=== PATIENT | female | born 1980 | race Hispanic/Latino ===

== ENCOUNTER 2024-06-16 20:45 | Emergency (ER) | payer SELFPAY ==
[~2024-06-16] VITALS: Ht 157.5 cm; Wt 58.1 kg
[2024-06-16] MEDS: hydrOXYzine 25 MG TABLET PO ONE (21:26)
[2024-06-16 21:32] LABS: BASOPHILS # (AUTO) 0.04 K/uL (0.00-0.20); BASOPHILS % (AUTO) 0.5 % (0.0-5.0); EOSINOPHILS # (AUTO) 0.17 K/uL (0.00-0.70); HEMATOCRIT 41.9 % (36-48); IMMATURE GRANULOCYTE ABSOLUTE 0.03 K/uL (0-1); LYMPHOCYTES % (AUTO) 12.1 % (21.0-51.0); MEAN CORPUSCULAR HEMOGLOBIN 31.7 pg (27.0-33.0); MEAN CORPUSCULAR HGB CONC 32.9 g/dL (32.0-36.0); MEAN CORPUSCULAR VOLUME 96.1 fL (79-99); MONOCYTES # (AUTO) 0.3 K/uL (0.1-1.0); MONOCYTES % (AUTO) 3.3 % (3.0-13.0); NEUTROPHILS # (AUTO) 6.8 K/uL (1.8-7.7); NEUTROPHILS % (AUTO) 81.7 % (40.0-77.0); PLATELET COUNT (AUTO) 310 K/uL (130-400); RED BLOOD CELL COUNT(AUTO) 4.36 MIL/uL (4.00-5.50); RED CELL DISTRIBUTION WIDTH 12.5 % (11.0-15.5); WHITE BLOOD COUNT (AUTO) 8.4 K/uL (4.8-10.8)
--- NOTE | 2024-06-16 21:35 | HMCIMG ---
CHEST 1VW HISTORY: Chest pain COMPARISON: None FINDINGS: A frontal projection of the chest was obtained. Prominent interstitial markings are seen with possible superimposed infiltrates. The heart is borderline enlarged. All the lines and tubes are again seen in place. No evidence of aortic calcification is seen. IMPRESSION: 1. Prominent interstitial markings are seen with possible superimposed infiltrates.
[2024-06-16 21:40] LABS: CREATININE 0.6 mg/dL (0.5-1.0); POTASSIUM 3.4 mmol/L (3.5-5.1)
[2024-06-16 21:52] VITALS: BP 140/80; PULSE 80; RESP 20; TEMP 98.1; O2SAT 98
--- NOTE | 2024-06-16 22:33 | ERN ---
ED Note History of Present Illness Stated Complaint: ANXIETY Chief Complaint: Anxiety/Panic Attack Time Seen by MD: 20:50 Time Seen by Midlevel: 20:50 Dictation: The patient is a 44-year-old female with a history of hypertension, diabetes, asthma who presents to the emergency department with complaints of anxiety. Patient reports that ever since Tuesday she has been staying at a half-way in been having personal problems. Patient did not want to discuss what kind of personal problems she had a specifically but reports it was some problems with people at the shoulder. Patient reports chest pain and reported pain as pins that have resolved. Denies any suicidal or homicidal ideations. No other complaints reported. Allergies: Coded Allergies: No Known Drug Allergies (Unverified Allergy, Unknown, 06/16/24) Past Medical History Past Medical History: Anxiety Surgical History: None RN Note Reviewed/Agreed w/PFSH: Yes Review of System Dictation Constitutional: Negative for fever,chills, and weight loss Eyes: Negative for injury, pain,redness, and discharge ENT: Negative for injury,pain or swelling Cardiovascular: Negative for palpitations, and edema positive for chest pain Respiratory: Negative for shortness of breath, cough, and wheezing, Abdomen/GI: Negative for abdominal pain, nausea, vomiting, diarrhea, and constipation Back: Negative for injury and pain : Negative for injury, bleeding and discharge MS/Extremity: Negative for injury and deformity Skin: Negative for rash, and discoloration Neuro: Negative for headache, weakness, numbness, tingling, and seizure Psych: Negative for suicide ideation, homicidal ideation, and hallucinations positive for anxiety Initial Vital Sign VS Vital Signs Date Time Temp Pulse Resp B/P (MAP) Pulse Ox O2 Delivery O2 Flow Rate FiO2 06/16/24 20:51 98.4 84 18 142/88 98 Room Air* 0 21 Physical Exam Dictation Vital Signs reviewed General Appearance: Alert, oriented x 3, no acute distress, well developed, nourished. Head and Face: non-traumatic. Eyes: PERRL, pink conjunctivas, eyelid no trauma, anterior chamber with arcus senilis. Ears: Pinnas intact and no signs of trauma or erythema ear canals clear and no discharge TM no erythema Nose: No discharge, no bleeding. Oropharynx: Mouth normal, tongue pink. pharynx clear,no erythema, tonsils no exudates, no abscesses noted, mucous membrane moist Neck: Supple, non-tender, no thyromegaly, no masses, no JVD, no bruits Breast:Deferred Chest:No tenderness, no crepitus, no paradoxical movement, no retractions Lungs:Clear, well-ventilated, symmetric, no rales, no wheezing, no rhonchi, no stridor, good breath sounds bilaterally Heart: Regular rate, regular rhythm, no murmur, no gallops Vascular: no peripheral edema, Abdomen: Soft, positive bowel sounds, nondistended, no guarding, nontender, no rebound, no masses no hepatomegaly, no splenomegaly, no Medeiros's sign, no hernias. Rectal: Deferred Genital: Deferred Neurological: Normal speech, motor function intact, sensory function intact Musculoskeletal: Neck nontender, full range of motion, back nontender, full range of motion, Extremities: nontender, full range of motion Skin: Color pink, dry, no turgor, no rash, no lacerations, no abrasions, no c ontusions. Lymphatic: Deferred Results (Laboratory/Radiology) Laboratory/Radiology Laboratory Tests Test 06/16/24 21:25 White Blood Count 8.4 K/uL (4.8-10.8) Red Blood Count 4.36 MIL/uL (4.00-5.50) Hemoglobin 13.8 g/dL (12.0-16.0) Hematocrit 41.9 % (36-48) Mean Corpuscular Volume 96.1 fL (79-99) Mean Corpuscular Hemoglobin 31.7 pg (27.0-33.0) Mean Corpuscular Hemoglobin Concent 32.9 g/dL (32.0-36.0) Red Cell Distribution Width 12.5 % (11.0-15.5) Platelet Count 310 K/uL (130-400) Mean Platelet Volume 9.8 fL (7.5-10.5) Immature Granulocyte % (Auto) 0.4 % (0-1) Neutrophils (%) (Auto) 81.7 % (40.0-77.0) H Lymphocytes (%) (Auto) 12.1 % (21.0-51.0) L Monocytes (%) (Auto) 3.3 % (3.0-13.0) Eosinophils (%) (Auto) 2.0 % (0.0-8.0) Basophils (%) (Auto) 0.5 % (0.0-5.0) Neutrophils # (Auto) 6.8 K/uL (1.8-7.7) Lymphocytes # (Auto) 1.0 K/uL (1.0-4.8) Monocytes # (Auto) 0.3 K/uL (0.1-1.0) Eosinophils # (Auto) 0.17 K/uL (0.00-0.70) Basophils # (Auto) 0.04 K/uL (0.00-0.20) Absolute Immature Granulocyte (auto 0.03 K/uL (0-1) Nucleated Red Blood Cells 0.0 % (0.0-0.19) Sodium Level 135 mmol/L (136-145) L Potassium Level 3.4 mmol/L (3.5-5.1) L Chloride Level 100 mmol/L (101-111) L Carbon Dioxide Level 31 mmol/L (21-32) Blood Urea Nitrogen 13 mg/dL (7-18) Creatinine 0.6 mg/dL (0.5-1.0) Glomerular Filtration Rate Calc 113 mL/min (>90) Random Glucose 118 mg/dL (70-105) H Total Calcium 8.6 mg/dL (8.5-10.1) Troponin I High Sensitivity < 4 ng/L (4-50) L Serum Test, Qualitative NEGATIVE (NEGATIVE) REASON: cp ORDERING PHYSICIAN: ROXANA BOONE PROCEDURE: CXR1VW - CHEST 1VW CHEST 1VW HISTORY: Chest pain COMPARISON: None FINDINGS: A frontal projection of the chest was obtained. Prominent interstitial markings are seen with possible superimposed infiltrates. The heart is borderline enlarged. All the lines and tubes are again seen in place. No evidence of aortic calcification is seen. IMPRESSION: 1. Prominent interstitial markings are seen with possible superimposed infiltrates. Labs Reviewed?: Yes ED Course ED Course Orders Procedure Category Date Status Time Cbc With Differential LAB 06/16/24 Complete 21:11 Chest 1vw RAD 06/16/24 Resulted 21:11 Troponin I High LAB 06/16/24 Complete Sensitivity 21:11 Basic Metabolic Panel LAB 06/16/24 Complete 21:11 Testing, LAB 06/16/24 Complete Serum Hcg 21:11 Hydroxyzine 25mg Tab PHA 06/16/24 Complete (Atarax 25mg Tab) 21:30 12 Lead Ekg Tracing- EKG 06/16/24 Logged Technical 22:28 Current Medications Medications (Trade) Dose Ordered Sig/Katy Route PRN Reason Start Time Stop Time Status Last Admin Dose Admin Hydroxyzine HCl (ATArax 25MG TAB) 25 mg ONCE ONCE PO 06/16/24 21:30 06/16/24 21:31 DC 06/16/24 21:26 Vital Signs Date Time Temp Pulse Resp B/P (MAP) Pulse Ox O2 Delivery O2 Flow Rate FiO2 06/16/24 21:52 98.1 80 20 140/80 98 Room Air* 0 21 06/16/24 20:51 98.2 86 18 142/88 99 Room Air 0 06/16/24 20:51 98.4 84 18 142/88 98 Room Air* 0 21 Medical Decision Making MDM The patient is a 44-year-old female with a history of hypertension, diabetes, asthma who presents to the emergency department with complaints of anxiety. Patient reports that ever since Tuesday she has been staying at a half-way in been having personal problems. Patient did not want to discuss what kind of personal problems she had a specifically but reports it was some problems with people at the shoulder. Patient reports chest pain and reported pain as pins that have resolved. Denies any suicidal or homicidal ideations. No other complaints reported. CBC showed no leukocytosis, no anemia, chemistry showed mild hyponatremia, hypokalemia, hypochloremia, normal renal function. Chest x-ray unremarkable. Patient eloped from ER Differential diagnosis: ACS, anxiety, dehydration, electrolyte imbalance DX & DISP Disposition: AMA Departure Condition: Stable Referrals: SELF,REFERRAL (PCP) I have reviewed the case, and I agree with, Diagnosis and Plan ROXANA BOONE Jun 16, 2024 22:33
--- NOTE | 2024-06-16 22:48 | NUR ---
PATIENT SEARCHED FOR IN RESTROOM, LOBBY AND PARKING LOT NOT FOUND.
--- NOTE | 2024-06-16 23:13 | NUR ---
PATIENT ELOPED. ED PROVIDER MADE AWARE
== END 2024-06-16 23:14 | disposition left against medical advice (07) ==
LOC: EDH 20:45
DX: F41.9 Anxiety disorder, unspecified (principal); R10.2 Pelvic and perineal pain
CPT/HCPCS: 36415; 71045; 80048; 84484; 84703; 85025; 99284

== ENCOUNTER 2024-10-27 04:45 | Emergency (ER) | payer SELFPAY ==
[~2024-10-27] VITALS: Ht 165.1 cm; Wt 54.4 kg
[2024-10-27] MEDS: ORPHENADRINE 60MG/2ML IM ONE (05:08)
[2024-10-27] MEDS: TRIAMCINOLONE ACETONIDE 40 MG/ML 1ML VIAL IM ONE (05:08)
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
[2024-10-27 05:57] VITALS: BP 124/70; PULSE 78; RESP 16; TEMP 98.6; O2SAT 99
[2024-10-27] MEDS ORDERED: CYCL10TA16 PO (06:18)
[2024-10-27] MEDS ORDERED: KETO10 PO (06:18)
== END 2024-10-27 07:03 | disposition home or self-care (01) ==
LOC: EDH 04:45
DX: M79.601 Pain in right arm (principal); M54.2 Cervicalgia; E11.9 Type 2 diabetes mellitus without complications; E78.00 Pure hypercholesterolemia, unspecified; J45.909 Unspecified asthma, uncomplicated; I10 Essential (primary) hypertension; F41.9 Anxiety disorder, unspecified
CPT/HCPCS: 99284; 96372 ×3; J1885; J3301; J2360